=== PATIENT | female | born 1990 | race African-American/Black ===

== ENCOUNTER 2018-06-27 12:16 | Emergency (ER) | payer MEDICAID ==
[~2018-06-27] VITALS: Ht 157.5 cm; Wt 87.0 kg
[2018-06-27 12:38] VITALS: BP 127/78
== END 2018-06-27 16:26 | disposition left against medical advice (07) ==
LOC: ER 12:16
DX: R51 Headache (principal); Z53.21 Procedure and treatment not carried out due to patient leaving prior to being seen by health care provider

== ENCOUNTER 2018-12-02 03:28 | Emergency (ER) | payer MEDICAID ==
[~2018-12-02] VITALS: Ht 167.6 cm; Wt 91.0 kg
[2018-12-02] MEDS ORDERED: FAMOTIDINE 20MG TABLET PO ONE (05:00)
[2018-12-02] MEDS ORDERED: DIPHENHYDRAMINE 25MG CAPSULE PO ONE (05:00)
[2018-12-02 05:16] VITALS: BP 120/75
== END 2018-12-02 05:17 | disposition home or self-care (01) ==
LOC: ER 03:28
DX: R21 Rash and other nonspecific skin eruption (principal); L53.8 Other specified erythematous conditions; F17.200 Nicotine dependence, unspecified, uncomplicated; Z88.0 Allergy status to penicillin; Z88.2 Allergy status to sulfonamides; Z88.1 Allergy status to other antibiotic agents
CPT/HCPCS: 99283; Q0163

== ENCOUNTER 2019-02-01 11:35 | Emergency (ER) | payer MEDICAID ==
[~2019-02-01] VITALS: Ht 157.5 cm; Wt 89.0 kg
[2019-02-01 11:46] VITALS: BP 128/78
== END 2019-02-01 14:10 | disposition left against medical advice (07) ==
LOC: ER 11:35
DX: R68.89 Other general symptoms and signs (principal); Z53.21 Procedure and treatment not carried out due to patient leaving prior to being seen by health care provider

== ENCOUNTER 2022-05-31 23:07 | Emergency (ER) | payer BC, MEDICAID ==
[~2022-05-31] VITALS: Ht 160 cm; Wt 99.1 kg
[2022-05-31 23:41] VITALS: BP 130/89
== END 2022-06-01 01:47 | disposition left against medical advice (07) ==
LOC: ER 23:07
DX: Z53.21 Procedure and treatment not carried out due to patient leaving prior to being seen by health care provider (principal)

== ENCOUNTER 2023-05-13 01:29 | Emergency (ER) | payer BC ==
[~2023-05-13] VITALS: Ht 154.9 cm; Wt 95.0 kg
[2023-05-13 02:07] VITALS: BP 134/98; PULSE 101; RESP 16; O2SAT 100
[2023-05-13 08:29] LABS: BASOPHILS % 0.7 % (0.0-2.0); EOSINOPHILS % 3.2 % (0.0-5.0); HEMATOCRIT. 38.6 % (36.0-48.0); HEMOGLOBIN. 12.8 g/dL (12.0-16.0); LYMPHOCYTES % 22.5 % (20.0-50.0); MEAN CORPUSCULAR HEMOGLOBIN 28.7 pg (28.0-32.0); MEAN CORPUSCULAR HGB CONC 33.3 g/dL (31.0-37.0); MEAN CORPUSCULAR VOLUME 86.2 fL (81.0-99.0); MEAN PLATELET VOLUME 7.1 fl (7.4-10.4); MONOCYTES % 6.1 % (2.0-8.0); NEUTROPHILS % 67.5 % (40.0-76.0); PLATELET 555 x1000/uL (130-400); RED BLOOD CELL COUNT 4.47 mill/uL (4.2-5.4); RED CELL DISTRIBUTION WIDTH 13.9 % (11.6-14.6); WHITE BLOOD COUNT 11.7 x1000/uL (4.5-11.0)
[2023-05-13 08:40] LABS: PROTHROMBIN TIME 10.4 sec (9.6-11.0)
[2023-05-13 09:15] LABS: ALANINE AMINOTRANSFERASE 16 IU/L (10-49); ALBUMIN 4.7 g/dL (3.2-4.8); ASPARTATE AMINOTRANSFERASE 15 IU/L (<34); BILIRUBIN TOTAL 0.3 mg/dL (0.1-1.0); CALCIUM 9.4 mg/dL (8.7-10.4); CARBON DIOXIDE 31 mEq/L (21-32); CHLORIDE 104 mEq/L (98-107); CREATININE 0.7 mg/dL (0.6-1.0); GLUCOSE 98 mg/dL (70-105); POTASSIUM 3.8 mEq/L (3.5-5.1); PROTEIN TOTAL 8.3 g/dL (6.0-8.3); SODIUM 140 mEq/L (136-145); UREA NITROGEN BLOOD 8 mg/dL (9-23)
[2023-05-13] MEDS ORDERED: ACETAMINOPHEN 325MG TABLET PO ONE (09:15)
[2023-05-13] MEDS ORDERED: ERYTHROMYCIN BASE 0.5% OPHTH OINT 3.5GM BOTHEYE ONE (09:15)
[2023-05-13 09:41] VITALS: TEMP 98.9
[2023-05-13] MEDS ORDERED: ERYT1OIN6 EACHEYE (15:08)
[2023-05-14] MEDS ORDERED: IOHEXOL-300 100 ML BOTTLE ONE (12:05)
== END 2023-05-13 15:16 | disposition home or self-care (01) ==
LOC: ER 01:29
DX: H10.9 Unspecified conjunctivitis (principal); H57.13 Ocular pain, bilateral
CPT/HCPCS: 80053; 85025; 85610; 36415; 70481; 99284; Q9967; Z7610

== ENCOUNTER 2023-08-02 07:22 | Emergency (ER) | payer BC ==
[~2023-08-02] VITALS: Ht 157.5 cm; Wt 99.8 kg
[~2023-08-02 07:22] MED LIST: ERYT1OIN6 EACHEYE
[2023-08-02 07:39] VITALS: O2SAT 100
[2023-08-02 08:26] LABS: BASOPHILS % 0.2 % (0.0-2.0); EOSINOPHILS % 2.1 % (0.0-5.0); HEMATOCRIT. 34.3 % (36.0-48.0); HEMOGLOBIN. 11.4 g/dL (12.0-16.0); LYMPHOCYTES % 7.1 % (20.0-50.0); MEAN CORPUSCULAR HEMOGLOBIN 28.6 pg (28.0-32.0); MEAN CORPUSCULAR HGB CONC 33.3 g/dL (31.0-37.0); MEAN CORPUSCULAR VOLUME 86.1 fL (81.0-99.0); MEAN PLATELET VOLUME 7.5 fl (7.4-10.4); MONOCYTES % 5.1 % (2.0-8.0); NEUTROPHILS % 85.5 % (40.0-76.0); PLATELET 496 x1000/uL (130-400); RED BLOOD CELL COUNT 3.99 mill/uL (4.2-5.4); RED CELL DISTRIBUTION WIDTH 14.1 % (11.6-14.6); WHITE BLOOD COUNT 21.2 x1000/uL (4.5-11.0)
[2023-08-02 08:37] LABS: ALANINE AMINOTRANSFERASE 13 IU/L (10-49); ALBUMIN 4.5 g/dL (3.2-4.8); ASPARTATE AMINOTRANSFERASE 12 IU/L (<34); BILIRUBIN TOTAL 0.2 mg/dL (0.1-1.0); CALCIUM 8.7 mg/dL (8.7-10.4); CARBON DIOXIDE 26 mEq/L (21-32); CHLORIDE 103 mEq/L (98-107); CREATININE 0.7 mg/dL (0.6-1.0); GLUCOSE 140 mg/dL (70-105); SODIUM 135 mEq/L (136-145)
[2023-08-02 08:39] LABS: TROPONIN I HIGH SENSITIVITY < 4 ng/L (3.0-34); UREA NITROGEN BLOOD < 5 mg/dL (9-23)
[2023-08-02] MEDS ORDERED: AZIT250T12 MT (10:04)
[2023-08-02] MEDS: KETOROLAC 30MG/ML VIAL IV ONE (10:09)
[2023-08-02 10:10] VITALS: BP 151/72; PULSE 85; RESP 17; TEMP 98.1
== END 2023-08-02 10:12 | disposition home or self-care (01) ==
LOC: ER 07:51
DX: R07.89 Other chest pain (principal); J06.9 Acute upper respiratory infection, unspecified; Z88.0 Allergy status to penicillin; Z88.2 Allergy status to sulfonamides
CPT/HCPCS: 80053; 85025; 84484; 36415; 71045; 93005; 99285; Z7610 ×2

== ENCOUNTER 2024-07-09 14:33 | Emergency (ER) | payer BC ==
[~2024-07-09] VITALS: Ht 170.2 cm; Wt 98.0 kg
[~2024-07-09 14:33] MED LIST changes: +AZIT250T12 MT
[2024-07-09 14:37] VITALS: O2SAT 98
[2024-07-09] MEDS: KETOROLAC 30MG/ML VIAL IM ONE (15:56)
[2024-07-09] MEDS: HYDROCODONE/ACETAMINOPHEN 5/325MG TABLET PO ONE (15:57)
[2024-07-09] MEDS ORDERED: IBUP-2029 MT (16:30)
[2024-07-09 17:00] VITALS: BP 128/60; PULSE 71; RESP 18; TEMP 36.5; O2SAT 100
== END 2024-07-09 17:00 | disposition home or self-care (01) ==
LOC: ER 14:33
DX: S93.401A Sprain of unspecified ligament of right ankle, initial encounter (principal); F17.200 Nicotine dependence, unspecified, uncomplicated; E11.9 Type 2 diabetes mellitus without complications; Z88.0 Allergy status to penicillin; Z88.2 Allergy status to sulfonamides; X50.1XXA Overexertion from prolonged static or awkward postures, initial encounter; Y93.01 Activity, walking, marching and hiking; Y92.89 Other specified places as the place of occurrence of the external cause; Y99.8 Other external cause status
CPT/HCPCS: 73610; 73630; 96372; 99284; J1885; Z7610 ×4